=== PATIENT | male | born 1990 | race African-American/Black ===

== ENCOUNTER 2017-02-18 09:15 | Emergency (ER) | payer SELFPAY ==
[~2017-02-18] VITALS: Ht 182.9 cm; Wt 85.0 kg
[2017-02-18 09:41] VITALS: BP 157/105
[2017-02-18 10:58] LABS: BASOPHILS % 0.6 % (0.0-2.0); EOSINOPHILS % 0.5 % (0.0-5.0); HEMATOCRIT. 43.1 % (42.0-52.0); HEMOGLOBIN. 14.3 g/dL (14.0-18.0); LYMPHOCYTES % 39.5 % (20.0-50.0); MEAN CORPUSCULAR HGB CONC 33.2 g/dL (31.0-37.0); MEAN CORPUSCULAR VOLUME 84.3 fL (80.0-94.0); MEAN PLATELET VOLUME 7.4 fl (7.4-10.4); NEUTROPHILS % 50.4 % (40.0-76.0); PLATELET 251 x1000/uL (130-400); RED BLOOD CELL COUNT 5.11 mill/uL (4.7-6.1); RED CELL DISTRIBUTION WIDTH 12.4 % (11.6-14.6); WHITE BLOOD COUNT 3.4 x1000/uL (4.5-11.0)
[2017-02-18 11:03] LABS: CHLORIDE 105 mEq/L (98-107); INDEX HEMOLYSI 1 (1-3); INDEX ICTERIC 1 (1-4); INDEX LIPEMIC 1 (1-3)
[2017-02-18 11:12] LABS: ALANINE AMINOTRANSFERASE 25 IU/L (13-61); ALBUMIN 4.1 g/dL (3.4-5.0); ANION GAP 10; CALCIUM 9.4 mg/dL (8.5-10.1); CARBON DIOXIDE 29 mEq/L (21-32); LIPASE 106 IU/L (73-393); UREA NITROGEN BLOOD 17 mg/dL (7-21); eGFR > 60 mL/min (>60)
== END 2017-02-18 12:05 | disposition home or self-care (01) ==
LOC: ER 09:30
DX: R10.9 Unspecified abdominal pain (principal); K92.1 Melena; K92.0 Hematemesis; I10 Essential (primary) hypertension; H53.8 Other visual disturbances; I25.2 Old myocardial infarction; F14.10 Cocaine abuse, uncomplicated; F17.200 Nicotine dependence, unspecified, uncomplicated; Z86.59 Personal history of other mental and behavioral disorders
CPT/HCPCS: 36415; 80053; 83690; 85025; 93005; 99285; 99406